=== PATIENT | female | born 1980 | race Caucasian/White ===

== ENCOUNTER 2016-06-10 06:36 | Day surgery (SDC) | payer BC ==
[2016-06-08 13:17] LABS: BASOPHILS 0.3 %; BASOPHILS ABSOLUTE 0.02 10/3/uL (0.0-0.16); EOSINOPHILS 1.8 %; EOSINOPHILS ABSOLUTE 0.11 10/3/uL (0.0-0.53); HEMATOCRIT 41.4 % (36.0-48.0); HEMOGLOBIN 13.8 g/dL (12.0-16.0); IMMATURE GRANULOCYTES 0.3 %; IMMATURE GRANULOCYTES ABSOLUTE 0.02 10/3/uL (0.0-0.11); LYMPHOCYTES 22.5 %; MANUAL DIFF NO %; MEAN CORPUS HGB CONC 33.3 g/dL (32.0-36.0); MEAN CORPUSCULAR HEMOGLOB 28.9 pg (26.0-34.0); MEAN CORPUSCULAR VOLUME 86.8 fL (80-100); MEAN PLATELET VOLUME 9.8 fL (9.2-13.0); MONOCYTES 6.9 %; MONOCYTES ABSOLUTE 0.43 10/3/uL (0.21-1.20); NEUTROPHILS 68.2 %; NEUTROPHILS ABSOLUTE 4.25 10/3/uL (2.02-8.40); PLATELET COUNT 233 10/3/uL (150-400); RBC DISTRIBUTION WIDTH 13.5 % (12.0-16.0); RED CELL COUNT 4.77 10/6/uL (4.0-5.6); WHITE BLOOD CELLS 6.2 10/3/uL (4.5-10.5)
[2016-06-08 13:31] LABS: CALCIUM, SERUM 8.8 MG/DL (8.5-10.4); CHLORIDE, SERUM 109 MMOL/L (96-112); CO2 (CARBON DIOXIDE) 26 MMOL/L (24-34); CREATININE 0.81 MG/DL (0.55-1.02); GFR AFRICAN AMERICAN 107 ML/MIN (>=60); GFR NON AFRICAN AMERICAN 92 ML/MIN (>=60); GLUCOSE, SERUM 78 MG/DL (60-99); POTASSIUM, SERUM 4.2 MMOL/L (3.5-5.3); SODIUM, SERUM 142 MMOL/L (135-148)
[2016-06-08 13:32] LABS: BUN (BLOOD UREA NITROGEN) 10 MG/DL (6-23)
--- NOTE | ~2016-06-10 | OP ---
Record Of Operation [facility] [address] [place]. [address] NAME: VIDA MILLARD : 76 STATUS : REG [facility]#: [id number] AGE: 36 ADM/REG DATE : 06/10/16 MR#: [id number] REPORT SERV DATE: 06/10/16 DICTATED BY: MERRY PARHAM DATE: 06/10/16 REPORT STATUS : Draft TRANSCRIBED BY: MODBib DATE: 06/10/16 DATE OF PROCEDURE: 06/10/2016 SERVICE: Otolaryngology. PREOPERATIVE DIAGNOSES: 1. Chronic bilateral sinusitis. 2. Deviated nasal septum. 3. Chronic serous otitis media of the right ear. POSTOPERATIVE DIAGNOSES: 1. Chronic bilateral sinusitis. 2. Deviated nasal septum. 3. Chronic serous otitis media of the right ear. PROCEDURES: 1. Left endoscopic frontal sinusotomy. 2. Bilateral endoscopic sphenoid sinusotomy. 3. Left endoscopic ethmoidectomy. 4. Bilateral endoscopic maxillary antrostomy. 5. Septoplasty. 6. Right myringotomy with grommet placement. ANESTHESIA: General endotracheal anesthesia. ESTIMATED BLOOD LOSS: 10 mL. COMPLICATIONS: None. SPECIMENS: Left nasal contents. FINDINGS: The patient had inflamed nasal mucosa throughout. I was able to successfully open the left frontal sinus outflow tract, both sphenoid sinuses, removed the anterior and posterior ethmoid sinuses, and deviated nasal septum. She also had a serous effusion in the right ear. STATEMENT OF MEDICAL NECESSITY: This is a 36-year-old female with chronic headaches, who was found to have diseased sinuses throughout. She was treated with antibiotic steroids with little improvement. She had also had fluid in her ears present for more than three months. Preoperative review of her CT scan revealed disease in the above areas of operation. STATEMENT OF OPERATION: The patient was brought to the operating room in supine position and transferred to the operating room table. All pressure points were padded. General endotracheal anesthesia was established. Her head was turned to the left. Using a microscope and a myringotomy blade, an anterior-inferior myringotomy was made. The serous effusion was suctioned clear and a collar button type tube was placed. Floxin ophthalmic Record Of Operation [facility] [address] [place]. [address] NAME: VIDA MILLARD : 76 [place]US : [place] [facility] [place] [id number] AGE: 36 ADM/REG DATE : 06/10/16 MR#: [id number] REPORT SERV DATE: 06/10/16 DICTATED BY: MERRY PARHAM DATE: 06/10/16 REPORT STATUS : Draft TRANSCRIBED BY: BORA DATE: 06/10/16 drops were then instilled into the lumen. Next, the patient was set up for fusion image guidance, this was placed and found to be functioning well. The patient was draped out in the usual fashion. Cocaine soaked pledgets were used in both sides of the nose for packing as well as injecting 1% lidocaine with epinephrine and septal flaps bilaterally. After the appropriate amount of time had passed, the pledgets were removed from the left-hand side. The middle turbinate was gently medialized and an injection was performed for hemostasis and anesthesia in that area. Using a headlight and a small speculum I made a Zechariah incision on the left-hand side. I dissected the septal flap off the cartilage on the left. the bony cartilaginous junction with a Upson elevator and then elevated the periosteum off the contralateral side. Then, using the Eden forceps, I made a superior cut and using Upson elevator, I removed this deviated septal spur from the left-hand side. This was removed. The Rose incision was closed with interrupted 4-0 chromic sutures. Finally, Carolina splints were placed on both sides of the nose secured to the anterior septum with a 2-0 nylon stitch. The patient's stomach and oropharynx were suctioned clear of blood and fluid. Next, I went back over to the right-hand side. Again, I performed injections there. I used the Acclarent balloon to dilate the maxillary sinus on the right. Appropriate transillumination was achieved and I dilated to 12 atmospheres twice. I good anteriorization of the uncinate process. Next, I placed a pledget between the middle turbinate and the septum. Then, using the [address] image-guided sphenoid balloon, I was able to successfully cannulate and dilate that sinus, again using 12 atmospheres for three seconds. I then turned my attention to the left-hand side. The patient had a large anterior ethmoid cell. I removed her ethmoid bulla. I had also removed a posterior ethmoid cells between the lamina papyracea, the skull base, and the septum, and the attachment of middle turbinate. I successfully cannulated the frontal sinus. I dilated it all the way down three times to 12 atmospheres for 3 seconds each using the Acclarent balloon. I also dilated the left maxillary sinus successfully using the Acclarent balloon. Once I completely removed all the diseased ethmoid cells, I cannulated the sphenoid sinus on the left with the [employer] image-guided balloon, again successful cannulation and dilation. I was able to see a large 6 mm medardo-ostium directly with the camera. Hemostasis was obtained with Afrin-soaked pledgets. A propel stent was placed in the left ethmoid cavity between the middle turbinate and the lateral nasal wall. She was turned over to Anesthesia, where she awoke, was extubated, transferred to the PACU in stable condition. PS/MODL Merry Parham MD / [id number] Record Of Operation [address] [address] NAME: VIDA MILLARD : 76 [place]US [place] [facility] [place] [id number] AGE: 36 ADM/REG DATE : 06/10/16 MR#: [id number] REPORT SERV DATE: 06/10/16 DICTATED BY: MERRY PARHAM DATE: 06/10/16 REPORT STATUS : Draft TRANSCRIBED BY: MODL DATE: 06/10/16 CC: MD SAUMYA Tran SUSAN R.
[~2016-06-10 06:36] MED LIST: AXERT12.5 MG PO; BREO ELLIPTA INH; FLONASE NAS; NORCO1 TA1 PO; PRILO PO; PROAIR HFA INH; PROZAC40 MG PO; SINGULAIR1 PO; TOPAMAX50 MG PO; ZYRTEC ALLGY10 MG PO; [UNRECOGNIZED DRUG - REMARK]
[2016-10-29] MEDS ORDERED: METHOC500B PO (09:29)
[2016-10-29] MEDS ORDERED: ULTRAM50 PO (09:31)
== END 2016-06-10 18:12 | disposition home or self-care (01) ==
LOC: SDC 06:36
PROVIDERS: Otolaryngology
PROC: 09BV4ZZ Excision of Left Ethmoid Sinus, Percutaneous Endoscopic Approach (ICD-10-PCS; 2016-06-10)
PROC: 09CX4ZZ Extirpation of Matter from Left Sphenoid Sinus, Percutaneous Endoscopic Approach (ICD-10-PCS; 2016-06-10)
PROC: 09CW4ZZ Extirpation of Matter from Right Sphenoid Sinus, Percutaneous Endoscopic Approach (ICD-10-PCS; 2016-06-10)
PROC: 09BT4ZZ Excision of Left Frontal Sinus, Percutaneous Endoscopic Approach (ICD-10-PCS; 2016-06-10)
PROC: 099500Z Drainage of Right Middle Ear with Drainage Device, Open Approach (ICD-10-PCS; 2016-06-10)
PROC: 09QM0ZZ Repair Nasal Septum, Open Approach (ICD-10-PCS; principal; 2016-06-10 08:00)
PROC: 099R4ZZ Drainage of Left Maxillary Sinus, Percutaneous Endoscopic Approach (ICD-10-PCS; 2016-06-10 08:00)
PROC: 099Q4ZZ Drainage of Right Maxillary Sinus, Percutaneous Endoscopic Approach (ICD-10-PCS; 2016-06-10 08:00)
DX: J32.9 Chronic sinusitis, unspecified (principal); J34.2 Deviated nasal septum; H65.21 Chronic serous otitis media, right ear; G43.909 Migraine, unspecified, not intractable, without status migrainosus; J45.909 Unspecified asthma, uncomplicated; K21.9 Gastro-esophageal reflux disease without esophagitis; Z88.5 Allergy status to narcotic agent; F32.9 Major depressive disorder, single episode, unspecified; F42.9 Obsessive-compulsive disorder, unspecified; Z90.710 Acquired absence of both cervix and uterus; Z98.890 Other specified postprocedural states; Z87.891 Personal history of nicotine dependence; Z88.8 Allergy status to other drugs, medicaments and biological substances; Z79.899 Other long term (current) drug therapy
CPT/HCPCS: 80048; 85025; 88300; 88305; 93005; A9270-GY; C1726; C1887; C2625; J0360; J0690; J1170; J1885; J2250; J2405; J2550; J2710; J3010